=== PATIENT | male | born 1955 | race Caucasian/White ===

== ENCOUNTER 2018-02-19 16:47 | Inpatient (IN) | payer OTHER ==
[~2018-02-19] VITALS: Ht 182.9 cm; Wt 97.2 kg
[2018-02-19 17:40] LABS: BASOPHIL (%) 0.9 % (0-1); BASOPHIL COUNT 0.1 K/uL (0-0.1); CHLORIDE 104 mEq/L (99-109); EOSINOPHIL (%) 1.2 % (0-5); EOSINOPHIL COUNT 0.2 K/uL (0-0.3); HEMATOCRIT 43.7 % (38.0-50.0); IMMATURE GRANULOCYTE (%) 0.6 % (0.0-0.7); LYMPHOCYTE (%) 17.7 % (15-42); LYMPHOCYTE COUNT 2.5 K/uL (1.0-2.8); MCH 31.4 PG (29.0-34.0); MCHC 34.3 G/DL (30.0-36.0); MCV 91.6 FL (86-99); MONOCYTE (%) 6.8 % (3-12); NEUTROPHIL (%) 72.8 % (45-76); NEUTROPHIL COUNT 10.4 K/uL (1.8-6.4); PLATELET COUNT 299 K/uL (156-360); POTASSIUM 3.7 mEq/L (3.7-5.4); RBC DIS.WIDTH-CV 13.6 % (11.8-14.6); RBC DIS.WIDTH-SD 45.8 % (39-53); RED BLOOD COUNT 4.77 M/uL (4.00-5.50); SODIUM 142 mEq/L (136-147); WHITE BLOOD COUNT 14.3 K/uL (4.1-10.2)
[2018-02-19 17:41] LABS: GLUCOSE 122 mg/dL (70-99); INTER. NORMALIZED RATIO 0.9
[2018-02-19 17:43] LABS: PTT 22.6 SEC (25-37)
[2018-02-19 17:45] LABS: CREATININE 1.1 mg/dL (0.6-1.3); GFR ESTIMATE (CALCULATED) > 59 mL/min/ (58.99-99999)
[2018-02-19 17:46] LABS: UREA NITROGEN (BUN) 9 mg/dL (9-23)
[2018-02-19 17:53] LABS: TROP-I INTERPRETATION NEGATIVE; TROPONIN-I 0.03 ng/mL (0.0-0.30)
[2018-02-19 19:29] VITALS: BP 149/95
[2018-02-19 20:00] VITALS: BP 149/95
[2018-02-19 21:00] VITALS: BP 128/88
[2018-02-19 22:00] VITALS: BP 136/103
[2018-02-19 23:00] VITALS: BP 127/89
[2018-02-20] VITALS (9 sets, daily range): BP systolic 115–163; BP diastolic 72–109
[2018-02-20 07:02] LABS: BASOPHIL (%) 0.6 % (0-1); BASOPHIL COUNT 0.1 K/uL (0-0.1); EOSINOPHIL (%) 0.6 % (0-5); EOSINOPHIL COUNT 0.1 K/uL (0-0.3); HEMATOCRIT 39.3 % (38.0-50.0); HEMOGLOBIN 13.3 G/DL (12.5-16.6); IMMATURE GRANULOCYTE (%) 0.4 % (0.0-0.7); LYMPHOCYTE (%) 26.3 % (15-42); LYMPHOCYTE COUNT 3.3 K/uL (1.0-2.8); MCH 31.1 PG (29.0-34.0); MCHC 33.8 G/DL (30.0-36.0); MCV 91.8 FL (86-99); MONOCYTE (%) 9.6 % (3-12); MONOCYTE COUNT 1.2 K/uL (0-0.8); NEUTROPHIL (%) 62.5 % (45-76); NEUTROPHIL COUNT 7.7 K/uL (1.8-6.4); PLATELET COUNT 291 K/uL (156-360); RBC DIS.WIDTH-CV 13.8 % (11.8-14.6); RBC DIS.WIDTH-SD 46.5 % (39-53); RED BLOOD COUNT 4.28 M/uL (4.00-5.50); WHITE BLOOD COUNT 12.4 K/uL (4.1-10.2)
[2018-02-20 07:28] LABS: ALBUMIN 3.9 G/DL (3.2-4.8); ALKALINE PHOSPHATASE 74 IU/L (3-129); ALT (GPT) 47 IU/L (3-49); AST (GOT) 195 IU/L (2-34); CHLORIDE 106 MEQ/L (99-109); CREATININE 1.1 MG/DL (0.6-1.3); DIRECT BILIRUBIN 0.1 mg/dL (0.0-0.3); GFR ESTIMATE (CALCULATED) > 59 mL/min/ (58.99-99999); GLUCOSE 131 mg/dL (70-99); HDL CHOLESTEROL 31 MG/DL (Desirable>=40); LDL CHOLESTEROL 126 mg/dL (Desirable<100); NON-HDL CHOLESTEROL 174 mg/dL (Desirable<160); POTASSIUM 4.4 MEQ/L (3.7-5.4); SODIUM 141 MEQ/L (136-147); TOTAL BILIRUBIN 0.4 MG/DL (0.0-1.0); TOTAL CHOLESTEROL 205 mg/dL (Desirable<200); TOTAL PROTEIN 6.1 G/DL (6.4-8.3); TRIGLYCERIDES 238 MG/DL (Normal: <150); UREA NITROGEN (BUN) 8 mg/dL (9-23)
[2018-02-20 08:08] LABS: TROP-I INTERPRETATION POSITIVE; TROPONIN-I 110.69 ng/mL (0.0-0.30)
[2018-02-20 11:03] LABS: HEMOGLOBIN A1c (GLYCOHEMOGLOB) 5.9 % (Below 5.7)
[2018-02-20] MEDS ORDERED: PRILOSEC20 MG PO (11:04)
[2018-02-20 12:48] LABS: TROP-I INTERPRETATION POSITIVE; TROPONIN-I 75.28 ng/mL (0.0-0.30)
[2018-02-21 00:56] VITALS: BP 112/67
[2018-02-21 04:38] VITALS: BP 96/56
[2018-02-21] MEDS ORDERED: ASPIR-LOW81 MG PO (09:17)
[2018-02-21] MEDS ORDERED: EFFIENT10 MG PO (09:17)
[2018-02-21] MEDS ORDERED: ATORVASTATIN CA80 MG PO (09:17)
[2018-02-21] MEDS ORDERED: LOPRESSOR25 MG PO (09:17)
[2018-02-21] MEDS ORDERED: NITROSTAT0.4 MG SL (09:17)
== END 2018-02-21 11:44 | disposition home or self-care (01) | DRG 246 ==
LOC: EME 16:47 → CATH 17:27 → 4WEST 19:14 → ENRESERV 19:17 → CANRESERV 19:20 → 4WEST 02-20 18:10 → ENRESERV 02-20 18:11 → 4EAST 02-20 21:43 → ENPENDDIS 02-21 → 4EAST 02-21 11:44
PROVIDERS: Internal Medicine Cardiovascular Disease
PROC: B2111ZZ Fluoroscopy of Multiple Coronary Arteries using Low Osmolar Contrast (ICD-10-PCS; principal; 2018-02-19)
PROC: 02703ZZ Dilation of Coronary Artery, One Artery, Percutaneous Approach (ICD-10-PCS; principal; 2018-02-19)
PROC: 4A023N7 Measurement of Cardiac Sampling and Pressure, Left Heart, Percutaneous Approach (ICD-10-PCS; principal; 2018-02-19)
PROC: B2151ZZ Fluoroscopy of Left Heart using Low Osmolar Contrast (ICD-10-PCS; principal; 2018-02-19)
PROC: 027037Z Dilation of Coronary Artery, One Artery with Four or More Drug-eluting Intraluminal Devices, Percutaneous Approach (ICD-10-PCS; principal; 2018-02-19)
DX: I21.19 ST elevation (STEMI) myocardial infarction involving other coronary artery of inferior wall (principal); E78.5 Hyperlipidemia, unspecified; I25.10 Atherosclerotic heart disease of native coronary artery without angina pectoris; K21.9 Gastro-esophageal reflux disease without esophagitis; Z72.0 Tobacco use; Z79.82 Long term (current) use of aspirin
CPT/HCPCS: 80048; 80061; 80076; 83036; 84484; 85025; 85347; 85610; 85730; 87641; 93005; 94799; 99281; 99285; C1725; C1769; C1874; C1887; J0153; J0461; J1644; J2250; J2405; J3010; J3246; J7030